=== PATIENT | female | born 1975 ===

== ENCOUNTER 2019-07-31 06:15 | Day surgery (SDC) | payer OTHER ==
[~2019-07-31 06:15] MED LIST: ALLER-EASE180 MG PO; ATIVAN0.5 M1 PO; NAPR500T14; RESTORIL30 M1 PO; TOPROL XL25 M1 PO; WELLBUTRIN XL300 MG PO; XANA PO
[2019-07-31] MEDS ORDERED: PERCOCET 5-3251 EACH PO (11:21)
== END 2019-07-31 14:00 | disposition home or self-care (01) ==
LOC: CIR.AMB 06:15 → ADM 11:15 → CIR.AMB 11:15
DX: C73 Malignant neoplasm of thyroid gland (principal)